=== PATIENT | female | born 1980 | race American Indian/Alaskan Native ===

== ENCOUNTER 2017-06-25 11:15 | Emergency (ER) | payer MEDICAID ==
[2017-06-25 12:33] VITALS: BP 146/88
[2017-06-25] MEDS ORDERED: MUCINEX ER PO ONE (14:43)
[2017-06-25] MEDS ORDERED: TESSALON PERLES PO ONE (14:43)
[2017-06-25] MEDS ORDERED: TORADOL IM ONE (14:43)
--- NOTE | 2017-06-25 15:02 | Emergency Department Report ---
Chief Complaint: Adult Asthma Stated Complaint: CP/YARIEL/ASTHMA Time Seen by Provider: 06/25/17 14:33 - HPI History of Present Illness: The patient is a 36-year-old female presents for evaluation of dyspnea. The patient has a history of asthma. The patient reports 2 days of mildly productive cough of clear yellow sputum, mild dyspnea wheezing, and mild achy chest pain is exacerbated with coughing. The patient states that her symptoms are consistent with previous episodes of asthma attacks. The patient denies fever, trauma to the chest, syncope, hemoptysis, unilateral leg swelling, oral contraceptive use, recent immobilization, history of DVT or PE, recent cancer. - Exam Vital Signs: Vital Signs 06/25/17 12:30 Temperature 98.6 F Pulse Rate 69 Respiratory 20 Rate Blood Pressure 146/88 O2 Sat by Pulse 100 Oximetry MSE screening note: Focused history and physical exam performed. Due to findings the following was ordered: ED Disposition for MSE Condition: Stable Referrals: PRIMARY CARE, [Primary Care Provider] - 3-5 Days
--- NOTE | 2017-06-25 15:17 | XRay Report ---
Chest 2 views: History: Dyspnea. Findings: Normal cardiomediastinal silhouette. Trachea is midline. No consolidation, pneumothorax or pleural effusion. Impression: No acute cardiopulmonary findings.
[2017-06-25] MEDS ORDERED: DUONEB *Not for PRN Use IH ONE (15:31)
--- NOTE | 2017-06-25 16:22 | Emergency Department Report ---
- General Chief Complaint: Adult Asthma Stated Complaint: CP/YARIEL/ASTHMA Time Seen by Provider: 06/25/17 14:33 Source: patient Mode of arrival: Ambulatory Limitations: No Limitations - History of Present Illness Initial Comments: This is a 36-year-old female nontoxic, well nourished in appearance, no acute signs of distress presents to the ED with c/o of productive cough, wheezing, dyspnea, and shortness of breathe, rhinorrhea, nasal congestion x2 days. Patient stated she is out of her asthma medications and now developed symptoms of asthma exacerbation. Patient also stated has chest pain only during coughing episode. Patient describes productive cough as yellow mucus production. Patient denies any sick contact. Patient denies any recent travels , long car, recent hospital stays. Patient denies any calf pain or calf tenderness. Patient denies any chest pain, short of breath, fever, chills, nausea, vomiting, hemoptysis, numbness, tingling, headache or stiff neck, oral contraceptive use, recent immobilization, history of DVT or PE, recent cancer. Patient denies any allergies. PMH includes asthma. MD Complaint: cough, rhinorrhea, nasal congestion -: days(s) (2) Severity: mild Consistency: constant Improves With: nothing Worsens With: nothing Associated Symptoms: rhinorrhea, nasal congestion, cough, shortness of breath. denies: fever, chills, myalgias, diaphoresis, headache, sore throat, stiff neck , chest pain, abdominal pain, nausea, vomiting, diarrhea, dysuria, rash, confusion, right sweats, weight loss, epistaxis, hoarseness, ear pain Treatments Prior to Arrival: none - Related Data Previous Rx's Medication Instructions Recorded Last Taken Type ALBUTEROL Inhaler [ProAir HFA 2 puff IH QID PRN #1 inhalation 06/25/17 Unknown Rx Inhaler] Azithromycin [Zithromax Z-LETTY] 250 mg PO DAILY #6 tablet 06/25/17 Unknown Rx Prednisone [predniSONE 10 mg 10 mg PO .TAPER #1 tab.ds.pk 06/25/17 Unknown Rx (6-Day Pack, 21 Tabs)] Allergies Allergy/AdvReac Type Severity Reaction Status Date / Time No Known Allergies Allergy Unverified 06/25/17 12:30 ED Review of Systems ROS: Stated complaint: CP/YARIEL/ASTHMA Other details as noted in HPI Constitutional: denies: chills, fever Eyes: denies: eye pain, eye discharge, vision change ENT: denies: ear pain, throat pain Respiratory: cough, shortness of breath, wheezing Cardiovascular: denies: chest pain, palpitations Endocrine: no symptoms reported Gastrointestinal: denies: abdominal pain, nausea, diarrhea Genitourinary: denies: urgency, dysuria, discharge Musculoskeletal: denies: back pain, joint swelling, arthralgia Skin: denies: rash, lesions Neurological: denies: headache, weakness, paresthesias Psychiatric: denies: anxiety, depression Hematological/Lymphatic: denies: easy bleeding, easy bruising ED Past Medical Hx - Past Medical History Previous Medical History?: Yes Hx Asthma: Yes Additional medical history: vaginal delivery x 1 - Surgical History Past Surgical History?: No - Social History Smoking Status: Never Smoker Substance Use Type: Alcohol, Prescribed - Medications Home Medications: Home Medications Medication Instructions Recorded Confirmed Last Taken Type ALBUTEROL Inhaler [ProAir HFA 2 puff IH QID PRN #1 inhalation 06/25/17 Unknown Rx Inhaler] Azithromycin [Zithromax Z-LETTY] 250 mg PO DAILY #6 tablet 06/25/17 Unknown Rx Prednisone [predniSONE 10 mg 10 mg PO .TAPER #1 tab.ds.pk 06/25/17 Unknown Rx (6-Day Pack, 21 Tabs)] ED Physical Exam - General Limitations: No Limitations General appearance: alert, in no apparent distress - Head Head exam: Present: atraumatic, normocephalic - Eye Eye exam: Present: normal appearance, PERRL, EOMI Pupils: Present: normal accommodation - ENT ENT exam: Present: normal exam, normal orophraynx, mucous membranes moist, TM's normal bilaterally, normal external ear exam - Neck Neck exam: Present: normal inspection, full ROM. Absent: tenderness, meningismus, lymphadenopathy, thyromegaly - Respiratory Respiratory exam: Present: normal lung sounds bilaterally, wheezes (bilateral upper and lower lobes). Absent: respiratory distress, rales, rhonchi, stridor, chest wall tenderness, accessory muscle use, decreased breath sounds, prolonged expiratory - Cardiovascular Cardiovascular Exam: Present: regular rate, normal rhythm, normal heart sounds. Absent: bradycardia, tachycardia, irregular rhythm, systolic murmur, diastolic murmur, rubs, gallop - GI/Abdominal GI/Abdominal exam: Present: soft, normal bowel sounds. Absent: distended, tenderness, guarding, rebound, rigid, diminished bowel sounds - Rectal Rectal exam: Present: deferred - Extremities Exam Extremities exam: Present: normal inspection, full ROM, normal capillary refill. Absent: tenderness, pedal edema, joint swelling, calf tenderness - Back Exam Back exam: Present: normal inspection, full ROM. Absent: tenderness, CVA tenderness (R), CVA tenderness (L), muscle spasm, paraspinal tenderness, vertebral tenderness, rash noted - Neurological Exam Neurological exam: Present: alert, oriented X3, CN II-XII intact, normal gait, reflexes normal - Psychiatric Psychiatric exam: Present: normal affect, normal mood - Skin Skin exam: Present: warm, dry, intact, normal color. Absent: rash ED Course Vital Signs 06/25/17 12:30 Temperature 98.6 F Pulse Rate 69 Respiratory 20 Rate Blood Pressure 146/88 O2 Sat by Pulse 100 Oximetry - Reevaluation(s) Reevaluation #1: 06/25/17 16:29 Patient is speaking in full sentences with no signs of distress noted. - Consultations Consultation #1: 06/25/17 16:29 Patient has been consulted with Dr. Cary about patient history, physical exam, and labs and examined and screened patient and agrees to ED plan of care and discharge plan of care. ED Medical Decision Making - EKG Data When compared to previous EKG there are: no significant change Interpretation: normal EKG - Medical Decision Making This is a 36-year-old female that presents with upper respiratory infection and asthma exacerbation. Patient is stable and was examined by me. Chest x-ray has been obtained and dictated by radiologist with normal exam. Patient is notified of x-ray results with no questions noted. EKG normal sinus rhythm with no ST abnormalities. Due to patient having symptoms of upper respiratory infection and worsening I will treat patient empirically with zpak. Patient was instructed to increase hydration, rest and take Motrin for fever episodes. Patient receivedDuoNeb and Soul-Medrol in the ED. Post treatment: Patient stated symptoms of SOB has subsided. Wheezing subsided upon auscultation. Vitals stable. Patient is nonfebrile and normal heart rate. Patient was orally hydrated and patient tolerated well known nausea or vomiting. Patient was instructed Follow-up with a primary care doctor in 3-5 days or if symptoms worsen and continue return to emergency room as soon as possible. At time time of discharge, the patient does not seem toxic or ill in appearance. No acute signs of distress noted. Patient agrees to discharge treatment plan of care. No further questions noted by the patient. Critical care attestation.: If time is entered above; I have spent that time in minutes in the direct care of this critically ill patient, excluding procedure time. ED Disposition Clinical Impression: Upper respiratory infection Qualifiers: URI type: unspecified URI Qualified Code(s): J06.9 - Acute upper respiratory infection, unspecified Asthma exacerbation Qualifiers: Asthma severity: mild Asthma persistence: unspecified Qualified Code(s): J45.901 - Unspecified asthma with (acute) exacerbation Disposition: - TO HOME OR SELFCARE Is pt being admited?: No Does the pt Need Aspirin: No Condition: Stable Instructions: Asthma (ED), Upper Respiratory Infection (ED), Azithromycin (By mouth), Prednisone (By mouth) Additional Instructions: Follow-up with a primary care doctor in 3-5 days or if symptoms worsen and continue return to emergency room as soon as possible. Prescriptions: ALBUTEROL Inhaler [ProAir HFA Inhaler] 2 puff IH QID PRN #1 inhalation PRN Reason: Shortness Of Breath Azithromycin [Zithromax Z-LETTY] 250 mg PO DAILY #6 tablet Prednisone [predniSONE 10 mg (6-Day Pack, 21 Tabs)] 10 mg PO .TAPER #1 tab.ds.pk Referrals: PRIMARY CAREMD [Primary Care Provider] - 3-5 Days ANETTE MERCADO MD [Staff Physician] - 3-5 Days [facility] [Outside] - 3-5 Days [facility] [Outside] - 3-5 Days Forms: Work/School Release Form(ED)
== END 2017-06-25 16:39 | disposition home or self-care (01) ==
LOC: ED 11:15
DX: J06.9 Acute upper respiratory infection, unspecified (principal); J45.901 Unspecified asthma with (acute) exacerbation
CPT/HCPCS: 71046; 93005; 93010; 96372; 99283; J1885; J2930

== ENCOUNTER 2017-10-24 15:09 | Emergency (ER) | payer MEDICAID ==
[2017-10-24 15:18] VITALS: BP 143/88
[2017-10-24 15:54] LABS: BUN/Creatinine Ratio 12; Blood Urea Nitrogen 7 mg/dL (7-17); Calcium 9.2 mg/dL (8.4-10.2); Hemolysis Index 4
[2017-10-24] MEDS ORDERED: DELTASONE PO ONE (16:13)
[2017-10-24] MEDS ORDERED: DUONEB *Not for PRN Use IH ONE (16:13)
--- NOTE | 2017-10-24 16:25 | Emergency Department Report ---
ED Asthma HPI - General Chief Complaint: Adult Asthma Stated Complaint: SOB/CHEST TIGHTNESS Time Seen by Provider: 10/24/17 15:36 Source: patient Mode of arrival: Ambulatory Limitations: No Limitations - History of Present Illness Initial Comments: 37-year-old female past medical history asthma presents with complaint of 2-3 days of chest tightness. Patient is awake alert and oriented 3. Fully lucid. Denies discrete pleuritic chest pain. Denies fevers or chills. Denies productive cough. Denies any personal history of PE or DVT. Denies being on control. MD Complaint: "asthma attack", shortness of breath Onset/Timin -: days(s) Severity: moderate Treatments Prior to Arrival: inhaled bronchodilator - Related Data Current Asthma Therapy: inhaled bronchodilator Previous Rx's Medication Instructions Recorded Last Taken Type ALBUTEROL Inhaler [ProAir HFA 2 puff IH QID PRN #1 inhalation 06/25/17 Unknown Rx Inhaler] Azithromycin [Zithromax Z-LETTY] 250 mg PO DAILY #6 tablet 06/25/17 Unknown Rx Prednisone [predniSONE 10 mg 10 mg PO .TAPER #1 tab.ds.pk 06/25/17 Unknown Rx (6-Day Pack, 21 Tabs)] ALBUTEROL Inhaler [Proair] 2 puff IH QID PRN #1 inhalation 10/24/17 Unknown Rx ALBUTEROL NEB's [Proventil 0.083% 2.5 mg IH Q4H PRN #1 box 10/24/17 Unknown Rx NEBS] Budesoni/Formotero 160-4.5(Nf) 1 puff IH Q12H #1 inha 10/24/17 Unknown Rx [Symbicort 160-4.5 (Nf)] predniSONE [Deltasone] 40 mg PO QDAY #10 tab 10/24/17 Unknown Rx Allergies Allergy/AdvReac Type Severity Reaction Status Date / Time No Known Allergies Allergy Unverified 06/25/17 12:30 ED Review of Systems ROS: Stated complaint: SOB/CHEST TIGHTNESS Other details as noted in HPI Constitutional: denies: chills, fever Eyes: denies: eye pain, eye discharge, vision change ENT: denies: ear pain, throat pain Respiratory: shortness of breath. denies: cough, wheezing Cardiovascular: denies: chest pain, palpitations Endocrine: no symptoms reported Gastrointestinal: denies: abdominal pain, nausea, diarrhea Genitourinary: denies: urgency, dysuria, discharge Musculoskeletal: denies: back pain, joint swelling, arthralgia Skin: denies: rash, lesions Neurological: denies: headache, weakness, paresthesias Psychiatric: denies: anxiety, depression Hematological/Lymphatic: denies: easy bleeding, easy bruising ED Past Medical Hx - Past Medical History Hx Asthma: Yes Additional medical history: vaginal delivery x 1 - Social History Smoking Status: Never Smoker Substance Use Type: Alcohol - Medications Home Medications: Home Medications Medication Instructions Recorded Confirmed Last Taken Type ALBUTEROL Inhaler [ProAir HFA 2 puff IH QID PRN #1 inhalation 06/25/17 Unknown Rx Inhaler] Azithromycin [Zithromax Z-LETTY] 250 mg PO DAILY #6 tablet 06/25/17 Unknown Rx Prednisone [predniSONE 10 mg 10 mg PO .TAPER #1 tab.ds.pk 06/25/17 Unknown Rx (6-Day Pack, 21 Tabs)] ALBUTEROL Inhaler [Proair] 2 puff IH QID PRN #1 inhalation 10/24/17 Unknown Rx ALBUTEROL NEB's [Proventil 0.083% 2.5 mg IH Q4H PRN #1 box 10/24/17 Unknown Rx NEBS] Budesoni/Formotero 160-4.5(Nf) 1 puff IH Q12H #1 inha 10/24/17 Unknown Rx [Symbicort 160-4.5 (Nf)] predniSONE [Deltasone] 40 mg PO QDAY #10 tab 10/24/17 Unknown Rx ED Physical Exam - General Limitations: No Limitations General appearance: alert, in no apparent distress - Head Head exam: Present: atraumatic, normocephalic - Eye Eye exam: Present: normal appearance, PERRL, EOMI - ENT ENT exam: Present: mucous membranes moist - Neck Neck exam: Present: normal inspection - Respiratory Respiratory exam: Present: decreased breath sounds (slightly diminished breath sounds bilaterally). Absent: respiratory distress - Cardiovascular Cardiovascular Exam: Present: regular rate, normal rhythm. Absent: systolic murmur, diastolic murmur, rubs, gallop - GI/Abdominal GI/Abdominal exam: Present: soft, normal bowel sounds - Extremities Exam Extremities exam: Present: normal inspection - Back Exam Back exam: Present: normal inspection - Neurological Exam Neurological exam: Present: alert, oriented X3 - Psychiatric Psychiatric exam: Present: normal affect, normal mood - Skin Skin exam: Present: warm, dry, intact, normal color. Absent: rash ED Course Vital Signs 10/24/17 10/24/17 10/24/17 15:13 16:31 16:40 Temperature 98.4 F Pulse Rate 75 Pulse Rate [ 61 69 Anterior Bilateral] Respiratory 20 Rate Respiratory 18 18 Rate [Anterior Bilateral] Blood Pressure 143/88 O2 Sat by Pulse 100 Oximetry ED Medical Decision Making - Lab Data Result diagrams: 10/24/17 15:26 - Medical Decision Making A/P: Asthma exacerbation 1- refill on albuterol nebs, albuterol inhaler 2- short course prednisone 3- normal vital signs, patient does not have any audible wheezing or stridor or retractions before discharge. 4- vital signs stable 5- patient to follow up with primary care doctor Critical care attestation.: If time is entered above; I have spent that time in minutes in the direct care of this critically ill patient, excluding procedure time. ED Disposition Clinical Impression: Acute asthma exacerbation Qualifiers: Asthma severity: mild Asthma persistence: intermittent Qualified Code(s): J45.21 - Mild intermittent asthma with (acute) exacerbation Disposition: - TO HOME OR SELFCARE Is pt being admited?: No Does the pt Need Aspirin: No Condition: Stable Instructions: Asthma (ED) Prescriptions: ALBUTEROL Inhaler [Proair] 2 puff IH QID PRN #1 inhalation PRN Reason: Shortness Of Breath ALBUTEROL NEB's [Proventil 0.083% NEBS] 2.5 mg IH Q4H PRN #1 box PRN Reason: Wheezing Budesoni/Formotero 160-4.5(Nf) [Symbicort 160-4.5 (Nf)] 1 puff IH Q12H #1 inha predniSONE [Deltasone] 40 mg PO QDAY #10 tab Referrals: [facility] [Provider Group] - 3-5 Days BASSAM BEARDEN MD [Staff Physician] - 3-5 Days Forms: Work/School Release Form(ED) Time of Disposition: 17:49
--- NOTE | 2017-10-24 16:47 | XRay Report ---
FINAL REPORT EXAM: XR CHEST 1V AP HISTORY: Asthma TECHNIQUE: upright single view chest PRIORS: None. FINDINGS: Cardiac and mediastinal contours are unremarkable. No focal pulmonary infiltrate is identified. No pleural fluid collection seen. Pulmonary vasculature is unremarkable. IMPRESSION: Negative single-view chest
== END 2017-10-24 18:08 | disposition home or self-care (01) ==
LOC: ED 15:09
DX: J45.21 Mild intermittent asthma with (acute) exacerbation (principal)
CPT/HCPCS: 36415; 71045; 80048; 82150; 83690; 84703; 94640; 99284; J7512

== ENCOUNTER 2017-10-30 07:20 | Emergency (ER) | payer MEDICAID ==
[2017-10-30] MEDS ORDERED: DUONEB *Not for PRN Use IH ONE ×2 (09:03→09:46)
[2017-10-30 09:37] LABS: Basophils % (Auto) 0.2 % (0.0-1.8); Eosinophils % (Auto) 0.6 % (0.0-4.3); Hematocrit 40.3 % (30.3-42.9); Hemoglobin 13.9 gm/dl (10.1-14.3); Lymphocytes # (Auto) 2.7 K/mm3 (1.2-5.4); Lymphocytes % (Auto) 37.1 % (13.4-35.0); Mean Corpuscular HGB Conc 35 % (30-34); Mean Corpuscular Hemoglobin 32 pg (28-32); Mean Corpuscular Volume 93 fl (79-97); Monocytes # (Auto) 0.6 K/mm3 (0.0-0.8); Monocytes % (Auto) 8.1 % (0.0-7.3); Platelet Count 269 K/mm3 (140-440); Red Blood Count 4.32 M/mm3 (3.65-5.03); Red Cell Distribution Width 13.3 % (13.2-15.2)
--- NOTE | 2017-10-30 09:40 | Emergency Department Report ---
ED Asthma HPI - General Chief Complaint: Adult Asthma Stated Complaint: ASTHMA/CHEST TIGHTNESS Time Seen by Provider: 10/30/17 09:03 Source: patient Mode of arrival: Ambulatory Limitations: No Limitations - History of Present Illness Initial Comments: 37-year-old female past medical history asthma presents with complaint of wheezing since yesterday. Patient is awake alert and oriented 3 fully lucid. Speaking in full sentences. No audible wheezing or stridor. Denies any history of intubations for asthma. States she was last hospitalized for asthma as a child. Patient states she was in the ED 10 days ago approximately for asthma treatment. Just finished a course of prednisone. Denies being a smoker. Does state that she has slight nonproductive cough that has been ongoing for over a week. MD Complaint: "asthma attack", shortness of breath, wheezing Onset/Timin -: days(s) Severity: mild, moderate Associated Symptoms: productive cough - Related Data Current Asthma Therapy: inhaled bronchodilator Previous Rx's Medication Instructions Recorded Last Taken Type ALBUTEROL Inhaler [ProAir HFA 2 puff IH QID PRN #1 inhalation 06/25/17 Unknown Rx Inhaler] Azithromycin [Zithromax Z-LETTY] 250 mg PO DAILY #6 tablet 06/25/17 Unknown Rx Prednisone [predniSONE 10 mg 10 mg PO .TAPER #1 tab.ds.pk 06/25/17 Unknown Rx (6-Day Pack, 21 Tabs)] ALBUTEROL NEB's [Proventil 0.083% 2.5 mg IH Q4H PRN #1 box 10/24/17 Unknown Rx NEBS] Budesoni/Formotero 160-4.5(Nf) 1 puff IH Q12H #1 inha 10/24/17 Unknown Rx [Symbicort 160-4.5 (Nf)] predniSONE [Deltasone] 40 mg PO QDAY #10 tab 10/24/17 Unknown Rx ALBUTEROL Inhaler [ProAir HFA 2 puff IH QID PRN #1 inhalation 10/30/17 Unknown Rx Inhaler] ALBUTEROL NEB's [Proventil 0.083% 2.5 mg IH Q4H PRN #1 box 10/30/17 Unknown Rx NEBS] Azithromycin [Zithromax Z-LETTY] 250 mg PO QDAY #1 pack 10/30/17 Unknown Rx Phenylephrine/Dm/Acetaminop/GG 10 ml PO Q6H PRN #1 liquid 10/30/17 Unknown Rx [Mucinex Fmlj-Oud-Fwzveqrmca Lq] Prednisone [predniSONE 10 mg 10 mg PO .TAPER #1 tab.ds.pk 10/30/17 Unknown Rx (6-Day Pack, 21 Tabs)] Allergies Allergy/AdvReac Type Severity Reaction Status Date / Time No Known Allergies Allergy Unverified 06/25/17 12:30 ED Review of Systems ROS: Stated complaint: ASTHMA/CHEST TIGHTNESS Other details as noted in HPI Constitutional: denies: chills, fever Eyes: denies: eye pain, eye discharge, vision change ENT: denies: ear pain, throat pain Respiratory: cough, wheezing. denies: shortness of breath Cardiovascular: denies: chest pain, palpitations Endocrine: no symptoms reported Gastrointestinal: denies: abdominal pain, nausea, diarrhea Genitourinary: denies: urgency, dysuria, discharge Musculoskeletal: denies: back pain, joint swelling, arthralgia Skin: denies: rash, lesions Neurological: denies: headache, weakness, paresthesias Psychiatric: denies: anxiety, depression Hematological/Lymphatic: denies: easy bleeding, easy bruising ED Past Medical Hx - Past Medical History Previous Medical History?: Yes Hx Asthma: Yes Additional medical history: vaginal delivery x 1 - Surgical History Past Surgical History?: No - Social History Smoking Status: Never Smoker Substance Use Type: Alcohol - Medications Home Medications: Home Medications Medication Instructions Recorded Confirmed Last Taken Type ALBUTEROL Inhaler [ProAir HFA 2 puff IH QID PRN #1 inhalation 06/25/17 Unknown Rx Inhaler] Azithromycin [Zithromax Z-LETTY] 250 mg PO DAILY #6 tablet 06/25/17 Unknown Rx Prednisone [predniSONE 10 mg 10 mg PO .TAPER #1 tab.ds.pk 06/25/17 Unknown Rx (6-Day Pack, 21 Tabs)] ALBUTEROL NEB's [Proventil 0.083% 2.5 mg IH Q4H PRN #1 box 10/24/17 Unknown Rx NEBS] Budesoni/Formotero 160-4.5(Nf) 1 puff IH Q12H #1 inha 10/24/17 Unknown Rx [Symbicort 160-4.5 (Nf)] predniSONE [Deltasone] 40 mg PO QDAY #10 tab 10/24/17 Unknown Rx ALBUTEROL Inhaler [ProAir HFA 2 puff IH QID PRN #1 inhalation 10/30/17 Unknown Rx Inhaler] ALBUTEROL NEB's [Proventil 0.083% 2.5 mg IH Q4H PRN #1 box 10/30/17 Unknown Rx NEBS] Azithromycin [Zithromax Z-LETTY] 250 mg PO QDAY #1 pack 10/30/17 Unknown Rx Phenylephrine/Dm/Acetaminop/GG 10 ml PO Q6H PRN #1 liquid 10/30/17 Unknown Rx [Mucinex Nbxl-Xmt-Sjffzgpauj Lq] Prednisone [predniSONE 10 mg 10 mg PO .TAPER #1 tab.ds.pk 10/30/17 Unknown Rx (6-Day Pack, 21 Tabs)] ED Physical Exam - General Limitations: No Limitations General appearance: alert, in no apparent distress - Head Head exam: Present: atraumatic, normocephalic - Eye Eye exam: Present: normal appearance, PERRL, EOMI - ENT ENT exam: Present: mucous membranes moist - Neck Neck exam: Present: normal inspection - Respiratory Respiratory exam: Present: wheezes (wheezing right lower lung field on exam). Absent: respiratory distress - Cardiovascular Cardiovascular Exam: Present: regular rate, normal rhythm. Absent: systolic murmur, diastolic murmur, rubs, gallop - GI/Abdominal GI/Abdominal exam: Present: soft, normal bowel sounds - Extremities Exam Extremities exam: Present: normal inspection - Back Exam Back exam: Present: normal inspection - Neurological Exam Neurological exam: Present: alert, oriented X3 - Psychiatric Psychiatric exam: Present: normal affect, normal mood - Skin Skin exam: Present: warm, dry, intact, normal color. Absent: rash ED Course Vital Signs 10/30/17 10/30/17 10/30/17 07:24 09:25 09:45 Temperature 98.0 F Pulse Rate 76 Pulse Rate [ 82 87 Anterior] Respiratory 18 Rate Respiratory 21 21 Rate [Anterior] Blood Pressure 135/90 O2 Sat by Pulse 99 Oximetry 10/30/17 10/30/17 09:50 10:43 Temperature Pulse Rate Pulse Rate [ 89 91 H Anterior] Respiratory Rate Respiratory 22 24 Rate [Anterior] Blood Pressure O2 Sat by Pulse Oximetry ED Medical Decision Making - Lab Data Result diagrams: 10/30/17 09:21 10/30/17 09:21 - Medical Decision Making A/P: Asthma exacerbation, reactive airway disease, stable acute bronchitis 1-refill on albuterol nebs, albuterol inhaler 2- prednisone taper 3-patient feels significantly better before discharge. Normal vital signs, patient does not have any audible wheezing or stridor or retractions before discharge. 4- vital signs stable 5-advised patient that if her asthma persists or that if she feels worse she may require hospitalization. At this time since patient is symptomatically better and has normal vital signs and is no longer wheezing it is reasonable to discharge her with outpatient follow-up. Patient had negative d-dimer normal sinus rhythm EKG negative troponin and had an x-ray last week which was unremarkable. Critical care attestation.: If time is entered above; I have spent that time in minutes in the direct care of this critically ill patient, excluding procedure time. ED Disposition Clinical Impression: Acute asthma exacerbation Qualifiers: Asthma severity: mild Asthma persistence: persistent Qualified Code(s): J45.31 - Mild persistent asthma with (acute) exacerbation Acute bronchitis Qualifiers: Bronchitis organism: unspecified organism Qualified Code(s): J20.9 - Acute bronchitis, unspecified Disposition: DC- TO HOME OR SELFCARE Is pt being admited?: No Does the pt Need Aspirin: No Condition: Stable Instructions: Asthma (ED), Acute Bronchitis (ED) Prescriptions: ALBUTEROL Inhaler [ProAir HFA Inhaler] 2 puff IH QID PRN #1 inhalation PRN Reason: Shortness Of Breath ALBUTEROL NEB's [Proventil 0.083% NEBS] 2.5 mg IH Q4H PRN #1 box PRN Reason: Wheezing Azithromycin [Zithromax Z-LETTY] 250 mg PO QDAY #1 pack Phenylephrine/Dm/Acetaminop/GG [Mucinex Lsuw-Thv-Gagncmmdiq Lq] 10 ml PO Q6H PRN #1 liquid PRN Reason: Cough Prednisone [predniSONE 10 mg (6-Day Pack, 21 Tabs)] 10 mg PO .TAPER #1 tab.ds.pk Referrals: [facility] [Provider Group] - 3-5 Days Forms: Work/School Release Form(ED) Time of Disposition: 10:39
[2017-10-30 09:51] LABS: BUN/Creatinine Ratio 16; Blood Urea Nitrogen 11 mg/dL (7-17); Calcium 9.1 mg/dL (8.4-10.2); Hemolysis Index 10
[2017-10-30 11:09] VITALS: BP 122/62
== END 2017-10-30 11:07 | disposition home or self-care (01) ==
LOC: ED 07:20
DX: J45.31 Mild persistent asthma with (acute) exacerbation (principal); J20.9 Acute bronchitis, unspecified
CPT/HCPCS: 36415; 80048; 84484; 85025; 85379; 93005; 93010; 94640; 96372; 99283; J2930

== ENCOUNTER 2018-01-18 15:36 | Emergency (ER) | payer OTHER ==
[2018-01-18 16:19] VITALS: BP 129/88
[2018-01-18 17:09] LABS: HCG Qualitative,Urine Negative (Negative)
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
--- NOTE | 2018-01-18 21:46 | XRay Report ---
FINAL REPORT EXAM: XR SPINE CERVICAL 2-3V HISTORY: midline cervical tenderness TECHNIQUE: Frontal, lateral, odontoid views cervical spine Comparison: None FINDINGS: There is straightening of the normal lordotic curve of the cervical spine. The vertebral heights and disc spaces are maintained. There is exuberant anterior endplate osteophyte formation at the C5-C6 level. There is no plain film evidence of fracture and no evidence of subluxation. The paraspinous soft tissues are unremarkable. IMPRESSION: 1. No plain film evidence of acute bony or soft tissue abnormality. However, cervical spine fractures can be missed with plain film imaging. If there is a clinical concern for fracture, CT imaging may be helpful.
--- NOTE | 2018-01-18 21:47 | XRay Report ---
FINAL REPORT EXAM: XR SPINE LUMBOSACRAL 2-3V HISTORY: midline lubosacral pain TECHNIQUE: Frontal and lateral views lumbar spine and coned-down lateral view lumbosacral junction. Comparison: None FINDINGS: Bony alignment is normal. The vertebral heights and disc spaces are maintained. There is no evidence of fracture or subluxation. The paraspinous soft tissues are unremarkable. IMPRESSION: 1. No evidence of fracture or subluxation. However, lumbar spine fractures can be missed with plain film imaging. If there is a clinical concern for fracture, CT imaging would be helpful.
== END 2018-01-18 22:05 | disposition home or self-care (01) ==
LOC: ED 15:36
DX: S16.1XXA Strain of muscle, fascia and tendon at neck level, initial encounter (principal); S39.012A Strain of muscle, fascia and tendon of lower back, initial encounter; J45.909 Unspecified asthma, uncomplicated; V89.2XXA Person injured in unspecified motor-vehicle accident, traffic, initial encounter; Y93.89 Activity, other specified; Y92.488 Other paved roadways as the place of occurrence of the external cause; Y99.8 Other external cause status
CPT/HCPCS: 72040; 72100; 81025; 99283

== ENCOUNTER 2020-11-29 10:21 | Emergency (ER) | payer MEDICAID, OTHER ==
[2020-11-29] MEDS ORDERED: CYCLOBENZAPRINE 10 MG TAB PO ONE (11:57)
[2020-11-29] MEDS ORDERED: dexAMETHasone 4 MG/ML VIAL IM ONE (11:57)
[2020-11-29] MEDS ORDERED: KETOROLAC 60 MG/2 ML INJ IM ONE (11:57)
--- NOTE | 2020-11-29 12:08 | Emergency Department Report ---
ED Extremity Problem HPI - General Chief complaint: Extremity Injury, Lower Stated complaint: (L)LEG PAIN X1WEEK Time Seen by Provider: 11/29/20 11:54 Source: patient Mode of arrival: Wheelchair Limitations: No Limitations - History of Present Illness Initial comments: Patient presents for left leg pain that began last week but exacerbated over the last few days. She states that the pain radiates down her left leg. Patient states that she is also been having calf pain. She reports that she noticed a small amount of swelling behind her left knee. She denies any fall or injury. She denies any complete numbness or weakness. She is able to ambulate but reports that she has pain with ambulation. No past medical history. No allergies to medication. No recent travel, no recent surgery, no recent immobilization, no hormone use. She has not had COVID-19. - Related Data Previous Rx's Medication Instructions Recorded Last Taken Type Albuterol Mdi (or & Nicu Only) 2 puff IH QID PRN #1 inhalation 06/25/17 Unknown Rx [ProAir HFA Inhaler] Azithromycin [Zithromax Z-LETTY] 250 mg PO DAILY #6 tablet 06/25/17 Unknown Rx Prednisone [predniSONE 10 mg 10 mg PO .TAPER #1 tab.ds.pk 06/25/17 Unknown Rx (6-Day Pack, 21 Tabs)] ALBUTEROL NEB's [Proventil 0.083% 2.5 mg IH Q4H PRN #1 box 10/24/17 Unknown Rx NEBS] Budesoni/Formotero 160-4.5(Nf) 1 puff IH Q12H #1 inha 10/24/17 Unknown Rx [Symbicort 160-4.5 (Nf)] predniSONE [Deltasone] 40 mg PO QDAY #10 tab 10/24/17 Unknown Rx ALBUTEROL NEB's [Proventil 0.083% 2.5 mg IH Q4H PRN #1 box 10/30/17 Unknown Rx NEBS] Albuterol Mdi (or & Nicu Only) 2 puff IH QID PRN #1 inhalation 10/30/17 Unknown Rx [ProAir HFA Inhaler] Azithromycin [Zithromax Z-LETTY] 250 mg PO QDAY #1 pack 10/30/17 Unknown Rx Phenylephrine/Dm/Acetaminop/GG 10 ml PO Q6H PRN #1 liquid 10/30/17 Unknown Rx [Mucinex Wynv-Ujl-Lijxhfxrdf Lq] Prednisone [predniSONE 10 mg 10 mg PO .TAPER #1 tab.ds.pk 10/30/17 Unknown Rx (6-Day Pack, 21 Tabs)] Ibuprofen [Motrin 800 MG tab] 800 mg PO Q8HR PRN #12 tablet 01/18/18 Unknown Rx Menthol/Camphor [[facility] 1 applicatio TP BID #18 oint...g. 11/29/20 Unknown Rx Ointment] Naproxen [EC-Naprosyn] 500 mg PO BID PRN #20 tablet.dr 11/29/20 Unknown Rx methOCARBAMOL [Robaxin TAB] 500 mg PO BID PRN #20 tab 11/29/20 Unknown Rx Allergies Allergy/AdvReac Type Severity Reaction Status Date / Time No Known Allergies Allergy Verified 11/29/20 10:28 ED Review of Systems ROS: Stated complaint: (L)LEG PAIN X1WEEK Other details as noted in HPI Comment: All other systems reviewed and negative ED Past Medical Hx - Past Medical History Hx Asthma: Yes Additional medical history: vaginal delivery x 1 - Surgical History Past Surgical History?: No - Social History Smoking Status: Never Smoker Substance Use Type: Alcohol - Medications Home Medications: Home Medications Medication Instructions Recorded Confirmed Last Taken Type Albuterol Mdi (or & Nicu Only) 2 puff IH QID PRN #1 inhalation 06/25/17 Unknown Rx [ProAir HFA Inhaler] Azithromycin [Zithromax Z-LETTY] 250 mg PO DAILY #6 tablet 06/25/17 Unknown Rx Prednisone [predniSONE 10 mg 10 mg PO .TAPER #1 tab.ds.pk 06/25/17 Unknown Rx (6-Day Pack, 21 Tabs)] ALBUTEROL NEB's [Proventil 0.083% 2.5 mg IH Q4H PRN #1 box 10/24/17 Unknown Rx NEBS] Budesoni/Formotero 160-4.5(Nf) 1 puff IH Q12H #1 inha 10/24/17 Unknown Rx [Symbicort 160-4.5 (Nf)] predniSONE [Deltasone] 40 mg PO QDAY #10 tab 10/24/17 Unknown Rx ALBUTEROL NEB's [Proventil 0.083% 2.5 mg IH Q4H PRN #1 box 10/30/17 Unknown Rx NEBS] Albuterol Mdi (or & Nicu Only) 2 puff IH QID PRN #1 inhalation 10/30/17 Unknown Rx [ProAir HFA Inhaler] Azithromycin [Zithromax Z-LETTY] 250 mg PO QDAY #1 pack 10/30/17 Unknown Rx Phenylephrine/Dm/Acetaminop/GG 10 ml PO Q6H PRN #1 liquid 10/30/17 Unknown Rx [Mucinex Wpwp-Ngk-Owtoyfiqdv Lq] Prednisone [predniSONE 10 mg 10 mg PO .TAPER #1 tab.ds.pk 10/30/17 Unknown Rx (6-Day Pack, 21 Tabs)] Ibuprofen [Motrin 800 MG tab] 800 mg PO Q8HR PRN #12 tablet 01/18/18 Unknown Rx Menthol/Camphor [[facility] 1 applicatio TP BID #18 oint...g. 11/29/20 Unknown Rx Ointment] Naproxen [EC-Naprosyn] 500 mg PO BID PRN #20 tablet.dr 11/29/20 Unknown Rx methOCARBAMOL [Robaxin TAB] 500 mg PO BID PRN #20 tab 11/29/20 Unknown Rx ED Physical Exam - General Limitations: No Limitations General appearance: alert, in no apparent distress - Head Head exam: Present: atraumatic, normocephalic - Eye Eye exam: Present: normal appearance - ENT ENT exam: Present: mucous membranes moist - Respiratory Respiratory exam: Absent: respiratory distress, accessory muscle use - Extremities Exam Extremities exam: Present: other (ttp to the left posterior calf and left posterior thigh, no edema, no skin changes, FROM of the LLE, neurovascularly intact, no bony ttp) - Neurological Exam Neurological exam: Present: alert, oriented X3 - Psychiatric Psychiatric exam: Present: normal affect, normal mood - Skin Skin exam: Present: warm, dry, intact ED Course Vital Signs 11/29/20 11/29/20 11/29/20 10:31 10:32 10:35 Temperature 97.9 F Pulse Rate 81 75 Respiratory 18 Rate O2 Sat by Pulse 100 Oximetry 11/29/20 13:38 Temperature Pulse Rate Respiratory 16 Rate O2 Sat by Pulse Oximetry ED Medical Decision Making - Radiology Data Radiology results: report reviewed Ordering Physician: BUFFY CAMARENA Date of Service: 11/29/20 Procedure(s): VL venous duplex LE LT Accession Number(s): [id number] cc: BUFFY CAMARENA DUPLEX DOPPLER LOWER EXTREMITY VEINS, LEFT INDICATION: left leg pain. TECHNIQUE: Duplex doppler imaging was performed through the veins of the left lower extremity using venous compression and other maneuvers. COMPARISON: No relevant prior imaging study available. FINDINGS: Left Common femoral vein: Negative. Left Superficial femoral vein: Negative. Left Popliteal vein: Negative. Left Calf veins: Negative. Additional findings: None. IMPRESSION: No sonographic evidence for DVT in the left lower extremity. Signer Name: Brandin Rios Jr, MD Signed: 11/29/2020 12:46 PM Workstation Name: [id number] Transcribed By: TTR Dictated By: BRANDIN RIOS JR, MD Electronically Authenticated By: BRANDIN RIOS JR, MD Signed Date/Time: 11/29/20 1246 DD/ 1246 TD/TT: - Medical Decision Making Patient presents for left leg pain that began last week but exacerbated over the last few days. She states that the pain radiates down her left leg. Patient states that she is also been having calf pain. She reports that she noticed a small amount of swelling behind her left knee. She denies any fall or injury. She denies any complete numbness or weakness. She is able to ambulate but reports that she has pain with ambulation. No past medical history. No allergies to medication. No recent travel, no recent surgery, no recent immobilization, no hormone use. She has not had COVID-19. Vitals are normal. On exam:ttp to the left posterior calf and left posterior thigh, no edema, no skin changes, FROM of the LLE, neurovascularly intact, no bony ttp. Doppler ultrasound: No sonographic evidence for DVT in the left lower extremity. Symptoms could likely be related to sciatica versus bursitis. Patient given medications while in the emergency department as she did not drive with improvement of her symptoms. Patient given prescription for medications. Advised patient Please take medication as prescribed as needed. Do not drive or operate machinery when taking muscle relaxer Robaxin. May use ice pack, heating pad, rest, salt bath. Do not use heat or ice while using [place] balm. Follow-up with a primary care doctor for reexamination. Return to emergency room for any new or worsening symptoms. Critical care attestation.: If time is entered above; I have spent that time in minutes in the direct care of this critically ill patient, excluding procedure time. ED Disposition Clinical Impression: Left leg pain Disposition: 01 HOME / SELF CARE / HOMELESS Is pt being admited?: No Does the pt Need Aspirin: No Condition: Stable Instructions: Sciatica, Leg Cramps Additional Instructions: Please take medication as prescribed as needed. Do not drive or operate machinery when taking muscle relaxer Robaxin. May use ice pack, heating pad, rest, salt bath. Do not use heat or ice while using [place] balm. Follow-up with a primary care doctor for reexamination. Return to emergency room for any new or worsening symptoms. Prescriptions: Naproxen [EC-Naprosyn] 500 mg PO BID PRN #20 tablet.dr PRN Reason: pain methOCARBAMOL [Robaxin TAB] 500 mg PO BID PRN #20 tab PRN Reason: muscle spasm/pain Menthol/Camphor [[facility] Ointment] 1 applicatio TP BID #18 oint...g. Referrals: RANI RAY MD [Staff Physician] - 2-3 Days [facility] [Provider Group] - 2-3 Days Time of Disposition: 12:56 Print Language: SLOV[place]
--- NOTE | 2020-11-29 12:51 | Vascular Lab Report ---
DUPLEX DOPPLER LOWER EXTREMITY VEINS, LEFT INDICATION: left leg pain. TECHNIQUE: Duplex doppler imaging was performed through the veins of the left lower extremity using venous compression and other maneuvers. COMPARISON: No relevant prior imaging study available. FINDINGS: Left Common femoral vein: Negative. Left Superficial femoral vein: Negative. Left Popliteal vein: Negative. Left Calf veins: Negative. Additional findings: None. IMPRESSION: No sonographic evidence for DVT in the left lower extremity. Signer Name: Brandin Rios Jr, MD Signed: 11/29/2020 12:46 PM Workstation Name: [id number]
== END 2020-11-29 14:25 | disposition home or self-care (01) ==
LOC: ED 10:21
DX: M79.605 Pain in left leg (principal); J45.909 Unspecified asthma, uncomplicated; Z72.89 Other problems related to lifestyle; Z79.899 Other long term (current) drug therapy
CPT/HCPCS: 93971; 96372; 99283; J1100; J1885

== ENCOUNTER 2020-12-28 09:42 | Emergency (ER) | payer SELFPAY ==
--- NOTE | 2020-12-28 10:11 | Emergency Department Report ---
ED Female HPI - General Chief complaint: Vaginal Bleeding Stated complaint: ABDOMINAL PAIN/VAG BLEED Time Seen by Provider: 12/28/20 10:06 Source: patient Mode of arrival: Ambulatory Limitations: No Limitations - History of Present Illness Initial comments: 40 YO AA COMES TO ER WITH VAG BLEEDING IN PREG. LMP 7-4 MILD CRAMPING HAS NOT HAD CARE AMBULATORY AND NON TOXIC ON EXAM IN TRIAGE MD Complaint: vaginal bleeding -: Gradual, days(s) Severity: mild Improves with: none Worsens with: none Are you Now?: Yes Last Menstrual Period: 10/15/20 EDC: 07/22/21 - Related Data Sexually active: Yes : 2 Para: 1 A: 0 Previous Rx's Medication Instructions Recorded Last Taken Type Amoxicillin [Trimox CAP] 500 mg PO BID #20 capsule 12/28/20 Unknown Rx Allergies Allergy/AdvReac Type Severity Reaction Status Date / Time No Known Allergies Allergy Verified 12/28/20 13:33 ED Review of Systems ROS: Stated complaint: ABDOMINAL PAIN/VAG BLEED Other details as noted in HPI Comment: All other systems reviewed and negative ED Past Medical Hx - Past Medical History Previous Medical History?: Yes Hx Asthma: Yes Additional medical history: vaginal delivery x 1 - Surgical History Past Surgical History?: No - Family History Family history: no significant - Social History Smoking Status: Never Smoker Substance Use Type: Alcohol - Medications Home Medications: Home Medications Medication Instructions Recorded Confirmed Last Taken Type Amoxicillin [Trimox CAP] 500 mg PO BID #20 capsule 12/28/20 Unknown Rx ED Physical Exam - General Limitations: No Limitations General appearance: alert, in no apparent distress - Head Head exam: Present: atraumatic, normocephalic - Eye Eye exam: Present: normal appearance - ENT ENT exam: Present: mucous membranes moist - Neck Neck exam: Present: normal inspection - Respiratory Respiratory exam: Present: normal lung sounds bilaterally. Absent: respiratory distress - Cardiovascular Cardiovascular Exam: Present: regular rate, normal rhythm. Absent: systolic murmur, diastolic murmur, rubs, gallop - GI/Abdominal GI/Abdominal exam: Present: soft, normal bowel sounds - Extremities Exam Extremities exam: Present: normal inspection - Back Exam Back exam: Present: normal inspection - Neurological Exam Neurological exam: Present: alert, oriented X3 - Psychiatric Psychiatric exam: Present: normal affect, normal mood - Skin Skin exam: Present: warm, dry, intact, normal color. Absent: rash ED Course Vital Signs 12/28/20 12/28/20 12/28/20 09:56 13:50 13:52 Temperature 98.7 F 99.8 F H Pulse Rate 65 81 Respiratory 18 14 Rate Blood Pressure 116/71 100/60 [Left] O2 Sat by Pulse 99 97 97 Oximetry 12/28/20 15:04 Temperature 98.2 F Pulse Rate 81 Respiratory 12 Rate Blood Pressure 121/73 [Left] O2 Sat by Pulse 99 Oximetry ED Medical Decision Making - Lab Data Result diagrams: 12/28/20 11:46 12/28/20 11:46 - Radiology Data Radiology results: report reviewed, image reviewed SEE REPORT - Medical Decision Making Vital Signs (72 hours) 12/28/20 12/28/20 12/28/20 09:56 13:50 13:52 Temperature 98.7 F 99.8 F H Pulse Rate 65 81 Respiratory 18 14 Rate Blood Pressure 116/71 100/60 [Left] O2 Sat by Pulse 99 97 97 Oximetry Labs 12/28/20 12/28/20 12/28/20 10:16 11:46 11:46 WBC 5.1 RBC 3.84 Hgb 12.0 Hct 35.8 MCV 93 MCH 31 MCHC 34 RDW 13.5 Plt Count 249 Lymph % (Auto) 34.3 [place] % (Auto) 5.7 Eos % (Auto) 0.5 Baso % (Auto) 0.2 Lymph # (Auto) 1.7 [place] # (Auto) 0.3 Eos # (Auto) 0.0 Baso # (Auto) 0.0 Seg Neutrophils % 59.3 Seg Neutrophils # 3.0 Sodium 141 Potassium 4.2 Chloride 106.9 Carbon Dioxide 23 Anion Gap 15 BUN 13 Creatinine 0.6 Estimated GFR > 60 BUN/Creatinine Ratio 22 Glucose 93 Calcium 9.4 HCG, Quant Urine WBC (Auto) 18.0 H Urine RBC (Auto) > 182.0 U Epithel Cells (Auto) 5.0 Urine Mucus Few Urine Yeast (Budding) Few Blood Type Ord Rhogam Gestat Weeks 12/28/20 12/28/20 11:46 11:46 WBC RBC Hgb Hct MCV MCH MCHC RDW Plt Count Lymph % (Auto) [place] % (Auto) Eos % (Auto) Baso % (Auto) Lymph # (Auto) [place] # (Auto) Eos # (Auto) Baso # (Auto) Seg Neutrophils % Seg Neutrophils # Sodium Potassium Chloride Carbon Dioxide Anion Gap BUN Creatinine Estimated GFR BUN/Creatinine Ratio Glucose Calcium HCG, Quant 557.9 H Urine WBC (Auto) Urine RBC (Auto) U Epithel Cells (Auto) Urine Mucus Urine Yeast (Budding) Blood Type B POSITIVE Ord Rhogam Gestat Weeks Rh pos LABS NOTED UA NOTED RH POS HCG 557-NO ACTIVITY LMP 7-4 WILL NEED FOLLOW UP US AND HCG UA NOTED- ROCEPHIN IN ER DC HOME WITH RX FOR AMOX. URINE CULTURE PENDING - CALL PT IF NEEDS TO HAVE AN ANTIBIOTIC CHANGE. PT DC HOME WITH DC PLAN OF CARE INCLUDING FOLLOW UP, DIET AND ACTIVITY. SHE VERBALIZES UNDERSTANDING OF PALN OF CARE. - Differential Diagnosis RO THREATENED AB Critical care attestation.: If time is entered above; I have spent that time in minutes in the direct care of this critically ill patient, excluding procedure time. ED Disposition Clinical Impression: Threatened miscarriage in early UTI (urinary tract infection) Qualifiers: Urinary tract infection type: site unspecified Disposition: 01 HOME / SELF CARE / HOMELESS Is pt being admited?: No Does the pt Need Aspirin: No Condition: Stable Instructions: Threatened Miscarriage Additional Instructions: STAY WELL HYDRATED PELVIC REST MED ORDERED TODAY FOR UTI TYLENOL FOR PAIN FOLLOW UP WITH OBGYN IN 48 HOURS FOR RECHECK REFERRAL BELOW- TAKE THIS PAPER WITH YOU TO THE MD Prescriptions: Amoxicillin [Trimox CAP] 500 mg PO BID #20 capsule Referrals: PRIMARY CAREMD [Primary Care Provider] - 3-5 Days PRISCILLA NAVARRETE MD [Staff Physician] - 3-5 Days Forms: Work/School Release Form(ED) Time of Disposition: 14:08
[2020-12-28 10:59] LABS: Mucus,Urine FEW /HPF
[2020-12-28 11:21] LABS: RBC,Urine > 182.0 /HPF (0.0-6.0)
[2020-12-28 12:07] LABS: Basophils % (Auto) 0.2 % (0.0-1.8); Eosinophils % (Auto) 0.5 % (0.0-4.3); Hematocrit 35.8 % (30.3-42.9); Lymphocytes # (Auto) 1.7 K/mm3 (1.2-5.4); Lymphocytes % (Auto) 34.3 % (13.4-35.0); Mean Corpuscular HGB Conc 34 % (30-34); Mean Corpuscular Volume 93 fl (79-97); Monocytes # (Auto) 0.3 K/mm3 (0.0-0.8); Monocytes % (Auto) 5.7 % (0.0-7.3); Platelet Count 249 K/mm3 (140-440); Red Blood Count 3.84 M/mm3 (3.65-5.03); Red Cell Distribution Width 13.5 % (13.2-15.2)
[2020-12-28 12:20] LABS: Blood Urea Nitrogen 13 mg/dL (7-17); Calcium 9.4 mg/dL (8.4-10.2); Hemolysis Index 4
[2020-12-28 12:43] LABS: BUN/Creatinine Ratio 22
--- NOTE | 2020-12-28 14:00 | Ultrasound Report ---
OB Ultrasound HISTORY: VAG BLEED IN PREG. TECHNIQUE: Grayscale and color imaging performed. COMPARISON: None FINDINGS: Uterus measures 9.5 x 5.1 x 5.6 cm with endometrial echocomplex measuring 8 mm. There is a crescentic-appearing gestational sac containing a pole in the lower uterine segment near the ce rvix. Higgins-rump length is 8 mm which corresponds with an EGA of 6 weeks and 6 days. Gestational sac diameter is difficult to measure because it is irregular. I was not given Doppler images to assess fo r cardiac activity. The ovaries are both unremarkable. No significant pelvic free fluid. IMPRESSION: Abnormal low-lying with abnormal crescentic appearance of the gestational sac. I was not given imaging to assess for any internal cardiac activity; however, this likely represents evolving failed/failing . Correlate with beta hCG level and if needed close sonographic foll ow-up. Signer Name: Neno Javier MD Signed: 12/28/2020 1:56 PM Workstation Name: [id number]
[2020-12-28] MEDS ORDERED: cefTRIAXone/NS 1 GM/50 ML 1 GM/50 ML BAG IV ONE (14:07)
[2020-12-28] MEDS ORDERED: SODIUM CHLORIDE 0.9% 1000 ML 1,000 ML IV ONE (14:07)
[2020-12-28] MEDS ORDERED: ACETAMINOPHEN 500 MG TAB PO ONE (14:08)
[2020-12-28 15:05] VITALS: BP 121/73
[2020-12-28 19:13] LABS: Bilirubin,Urine NEG (Negative); Blood,Urine LG (Negative); Color,Urine Yellow (Yellow); Protein,Urine <15 mg/dL mg/dL (Negative); Urobilinogen,Urine < 2.0 mg/dL (<2.0)
== END 2020-12-28 15:43 | disposition home or self-care (01) ==
LOC: ED 09:42
DX: O20.0 Threatened abortion (principal); O23.41 Unspecified infection of urinary tract in pregnancy, first trimester; J45.909 Unspecified asthma, uncomplicated; Z72.89 Other problems related to lifestyle; Z3A.01 Less than 8 weeks gestation of pregnancy
CPT/HCPCS: 36415; 76801; 76817; 80048; 81001; 84702; 85025; 86900; 86901; 87086; 96365; 99284; J0696; J7030